=== PATIENT | male | born 2000 | race Asian ===

== ENCOUNTER 2023-06-24 23:48 | Emergency (ER) | payer MEDICAID ==
[~2023-06-24] VITALS: Ht 177.8 cm; Wt 86.0 kg
[2023-06-24 23:59] VITALS: TEMP 99.4
[2023-06-25 00:56] VITALS: BP 147/86; PULSE 92; RESP 15
[2023-06-25] MEDS ORDERED: KETOROLAC TROMETHAMINE 60 MG/2 ML VIAL IM ONE (01:45)
[2023-06-25] MEDS ORDERED: LIDOCAINE 5% TRANSDERMAL PATCH TD ONE (01:45)
[2023-06-25] MEDS ORDERED: METHOCARBAMOL 500 MG TABLET PO ONE (01:45)
[2023-06-25] MEDS ORDERED: METH-659 PO (03:01)
[2023-06-25] MEDS ORDERED: IBUP-1492 PO (03:01)
== END 2023-06-25 03:43 | disposition home or self-care (01) ==
LOC: EMS 23:48
DX: M54.32 Sciatica, left side (principal)
CPT/HCPCS: 99283; 96372; J1885